=== PATIENT | female | born 1955 | race Caucasian/White ===

== ENCOUNTER → 2020-03-23 11:43 | Outpatient (BNVA) | payer MEDICARE, SELFPAY | PROVIDERS: Visit Provider Family Medicine | DX: E03.9 Hypothyroidism, unspecified (principal); E78.5 Hyperlipidemia, unspecified; E03.8 Other specified hypothyroidism; E78.49 Other hyperlipidemia; M79.7 Fibromyalgia | CPT/HCPCS: 80053; 80061; 84443 ==

== ENCOUNTER → 2020-09-21 11:47 | Outpatient (BNVA) | payer MEDICARE, SELFPAY | PROVIDERS: Visit Provider Family Medicine | DX: E03.9 Hypothyroidism, unspecified (principal); E78.5 Hyperlipidemia, unspecified; M79.7 Fibromyalgia | CPT/HCPCS: 80053; 80061; 84443 ==

== ENCOUNTER → 2021-03-31 09:03 | Outpatient (BNVA) | payer MEDICARE, SELFPAY | PROVIDERS: Visit Provider Family Medicine | DX: M79.7 Fibromyalgia (principal); E03.8 Other specified hypothyroidism; E78.49 Other hyperlipidemia | CPT/HCPCS: 80053; 80061; 84443; 85025 ==

== ENCOUNTER → 2021-09-28 08:52 | Outpatient (BNVA) | payer MEDICARE, SELFPAY | PROVIDERS: Visit Provider Family Medicine | DX: E78.49 Other hyperlipidemia (principal); E03.9 Hypothyroidism, unspecified | CPT/HCPCS: 80053; 80061; 84443; 85025 ==

== ENCOUNTER → 2022-03-29 09:55 | Outpatient (BNVA) | payer MEDICARE, SELFPAY | PROVIDERS: Visit Provider Family Medicine | DX: E03.8 Other specified hypothyroidism (principal); E78.49 Other hyperlipidemia; M79.7 Fibromyalgia; E03.9 Hypothyroidism, unspecified | CPT/HCPCS: 80053; 80061; 84443 ==

== ENCOUNTER → 2022-09-29 10:53 | Outpatient (BNVA) | payer MEDICARE, SELFPAY | PROVIDERS: PCP Family Medicine; Visit Provider Family Medicine | DX: M79.7 Fibromyalgia (principal); E03.8 Other specified hypothyroidism; E78.49 Other hyperlipidemia; E03.9 Hypothyroidism, unspecified; E78.5 Hyperlipidemia, unspecified | CPT/HCPCS: 80053; 80061; 84443; 85025 ==

== ENCOUNTER → 2023-04-20 11:59 | Outpatient (BNVA) | payer MEDICARE, SELFPAY | PROVIDERS: PCP Family Medicine; Visit Provider Family Medicine | DX: M79.7 Fibromyalgia (principal); E03.8 Other specified hypothyroidism; E78.49 Other hyperlipidemia; E03.9 Hypothyroidism, unspecified; E78.5 Hyperlipidemia, unspecified | CPT/HCPCS: 80053; 80061; 84443; 85025 ==

== ENCOUNTER → 2023-10-17 09:15 | Outpatient (BNVA) | payer MEDICARE, SELFPAY | PROVIDERS: PCP Family Medicine; Visit Provider Family Medicine | DX: E03.8 Other specified hypothyroidism; E78.49 Other hyperlipidemia | CPT/HCPCS: 80053; 80061; 84443; 85025 ==

== ENCOUNTER → 2024-04-15 11:13 | Outpatient (BNVA) | payer MEDICARE, SELFPAY | PROVIDERS: PCP Family Medicine; Visit Provider Family Medicine | DX: M79.7 Fibromyalgia (principal); E78.49 Other hyperlipidemia; E03.8 Other specified hypothyroidism | CPT/HCPCS: 80053; 80061; 84443; 85025 ==

== ENCOUNTER → 2024-10-23 08:26 | Outpatient (BNVA) | payer MEDICARE, SELFPAY | PROVIDERS: Family Provider Nurse Practitioner Family; PCP Nurse Practitioner Family; Visit Provider Nurse Practitioner Family | DX: E78.49 Other hyperlipidemia (principal); E03.8 Other specified hypothyroidism; M79.7 Fibromyalgia | CPT/HCPCS: 80053; 80061; 82306; 82607; 84443; 85025 ==

== ENCOUNTER → 2025-04-09 10:37 | Outpatient (BNVA) | payer MEDICARE, SELFPAY | PROVIDERS: Family Provider Nurse Practitioner Family; PCP Nurse Practitioner Family; Visit Provider Nurse Practitioner Family | DX: E03.8 Other specified hypothyroidism (principal); M79.7 Fibromyalgia; E78.49 Other hyperlipidemia | CPT/HCPCS: 80053; 80061; 82306; 82607; 83735; 84443; 85025 ==